=== PATIENT | male | born 2000 | race Hispanic/Latino ===

== ENCOUNTER 2022-11-18 10:46 | Day surgery (SDC) | payer BC, OTHER ==
[2022-11-18] MEDS ORDERED: Bupivacaine PF 0.5% 30 ML VIAL ONE (12:15)
[2022-11-18] MEDS ORDERED: Dexmedetomidine 200 MCG/2 ML VIAL ONE (12:26)
[2022-11-18] MEDS ORDERED: Fentanyl 100 MCG/2 ML VIAL ONE (12:27)
[2022-11-18] MEDS ORDERED: PROPOFOL 20 ML ONE ×2 (12:27→13:19)
[2022-11-18] MEDS ORDERED: Rocuronium Bromide 10 MG/ML (10ML VIAL) ONE (12:28)
[2022-11-18] MEDS ORDERED: Dexamethasone 20 MG/5 ML VIAL ONE (12:28)
[2022-11-18] MEDS ORDERED: Glycopyrrolate 0.2 MG/ML 5 ML SYRINGE ONE (12:28)
[2022-11-18] MEDS ORDERED: Ondansetron PF 4 MG/2 ML Vial ONE ×2 (12:28→15:05)
[2022-11-18] MEDS ORDERED: Ketorolac Tromethamine 30 MG/ML VIAL ONE (12:29)
[2022-11-18] MEDS ORDERED: Succinylcholine 200 MG/10 ml SYRINGE FS ONE (12:30)
[2022-11-18] MEDS ORDERED: ePHEDrine Sulfate 50 MG/10 ML VIAL ONE (13:25)
[2022-11-18] MEDS ORDERED: HYDROcodone/Acetaminophen 5/325 mg Tablet PO PRN ×2 (16:21→16:22)
[2022-11-18] MEDS ORDERED: Morphine 4 MG/ML VIAL SLOW IVP PRN (16:24)
[2022-11-18] MEDS ORDERED: Ondansetron PF 4 MG/2 ML Vial IVP PRN (16:31)
[2022-11-18] MEDS ORDERED: Promethazine HCl 6.25 MG in Sodium Chloride 0.9% 50 ML IVPB PRN (16:33)
== END 2022-11-18 15:43 | disposition home or self-care (01) ==
LOC: CSHSDC/OP 10:46 → SUATTDRO 10:46 → CSHSDC/OP 15:43
PROVIDERS: ADMIT Surgery; ATTEND Surgery
PROC: 0DTJ4ZZ Resection of Appendix, Percutaneous Endoscopic Approach (ICD-10-PCS; principal; 2022-11-18)
DX: K35.80 Unspecified acute appendicitis (principal); J45.909 Unspecified asthma, uncomplicated; K21.9 Gastro-esophageal reflux disease without esophagitis; Z79.899 Other long term (current) drug therapy; Z88.8 Allergy status to other drugs, medicaments and biological substances; Z91.010 Allergy to peanuts
CPT/HCPCS: 88304; C1776; J1100; J1885; J2405; J2704; J3010; S0020